=== PATIENT | male | born 1965 | race African-American/Black ===

== ENCOUNTER 2025-06-22 10:38 | Outpatient (AMB) | payer OTHER, SELFPAY ==
--- NOTE | 2025-06-22 10:44 | A.OFFVIS_ITS ---
Intake Visit Reasons: Tingling left upper ext. Allergies No Known Allergies Allergy (Verified 06/22/25 10:56) Medication List - Last Reconciled 06/22/25 by Jaye Hoffman CNP amitriptyline 50 mg PO BEDTIME amlodipine 5 mg PO DAILY aspirin 81 mg PO DAILY cagewvz-dnxdrkyngteto-bnlmruiz 250-250-65 mg (Excedrin Migraine) 1 tab PO Q4-6H PRN cholecalciferol (vitamin D3) (Vitamin D3) PO metformin ER 500 mg PO BID simvastatin 40 mg PO BEDTIME valsartan 160 mg PO DAILY HPI Comments Details: 60-year-old man with hyperlipidemia, hypertension, and diabetes presenting with intermittent tingling and numbness to the left hand that started in 04/2025 with no precipitating event identified. The numbness mainly affects the last two fingers of the left hand. The tingling and numbness occurs throughout the day, lasting 10-15 minutes each time. 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 He avoid activities that require substantial use of the left hand, such as lifting patients, to prevent exacerbation. He denies any significant pain or weakness. He states blood sugar has been well-controlled with fasting sugars under 120. [facility] Medical History (Updated 06/22/25 @ 11:02 by Jaye Hoffman CNP) HLD (hyperlipidemia) Hypertension Uncontrolled diabetes mellitus with hyperglycemia Tingling of left upper extremity Social History (Updated 06/22/25 @ 10:56 by Jaye Hoffman CNP) Alcohol intake: never Patient Tobacco Use Status: Current everyday Tobacco user Substance Use Type: Marijuana Review of Systems Const Denies chills, Denies daytime sleepiness, Denies difficulty sleeping, Denies fatigue, Denies fever(s), Denies frequent falls, Denies headache(s), Denies increased appetite, Denies poor appetite, Denies snoring, Denies weakness, Denies weight gain and Denies weight loss Eyes Denies blurry vision, Denies diplopia and Denies loss of vision ENT Denies vertigo, Denies dizziness, Denies dry mouth, Denies otalgia, Denies headache(s), Denies hearing loss, Denies epistaxis, Denies nasal congestion, Denies neck pain, Denies tinnitus, Denies sinus pain and Denies sore throat Card Denies chest pain at rest, Denies chest pain with activity, Denies syncope, Denies leg edema, Denies palpitations, Denies dyspnea and Denies dyspnea on exertion Resp Denies cough, Denies dyspnea, Denies dyspnea on exertion and Denies snoring GI Denies abdominal pain, Denies constipation, Denies heartburn, Denies diarrhea, Denies nausea and Denies vomiting Denies urinary frequency, Denies urinary incontinence and Denies urinary urgency Musc Denies abnormal gait, Denies back pain, Denies myalgias, Denies arthralgias, Denies neck pain, Reports numbness, Denies stiffness and Reports tingling Skin/Breast Denies pruritus, Denies lesions, Denies erythema, Denies rash and Denies skin ulcer Neuro Denies abnormal gait, Denies vertigo, Denies dizziness, Denies syncope, Denies frequent falls, Denies headache(s), Denies lack of coordination, Denies loss of vision, Denies memory loss, Reports numbness, Denies Other visual disturbances, Denies restless legs, Denies seizure-like activity, Reports tingling, Denies paresthesias, Denies tremor(s) and Denies weakness Psych Denies anxiety, Denies depression, Denies memory loss, Denies visual hallucinations and Denies hallucinations Endo Denies cold intolerance, Denies fatigue, Denies heat intolerance, Denies polydipsia, Denies polyuria and Denies palpitations Sherif/Lymph Denies easy bleeding and Denies easy bruising Physical Exam Const Other: General Appearance:? normal, in no acute distress. Head:? normocephalic, atraumatic. Eyes:? sclera non-icteric, conjunctiva clear. Ears:? auditory canal clear, tympanic membrane intact, clear. Nose:? no lesions. Oral Cavity:? gums normal, mucosa moist, no lesions. Throat:? clear. Neck/Thyroid:? no cervical lymphadenopathy, thyroid normal, neck supple, full range of motion, no carotid bruit. Skin:? no rashes, no significant birthmarks. Heart:? S1, S2 normal, no murmurs. Lungs:? clear anteriorly and posteriorly. Chest:? no gross rib deformity, clear to auscultation. Back:? normal exam of spine. Extremities:? no edema. Peripheral Pulses:? normal. Psych:? alert, oriented, cognitive function intact, cooperative with exam. Neuro Other: Abnormal Neurological Findings:?5-/5 L finger spread. Mental Status: alert and oriented X 3. Normal attention, orientation, memory, and affect. Cranial Nerves: Pupils are equal, round, and reactive to light. External ocular muscles are intact. Visual cloud are full, no ptosis. Face is symmetrical, no facial weakness or droop. Facial sensations are normal. Tongue protrudes in midline. Palate elevates symmetrically. Shoulder shrugging is normal Motor Examination: As above, otherwise normal muscle tone, bulk and strength. No atrophy or fasciculations. No drift of the extended upper extremities. DTR 2+. Plantars are flexor. Sensory Exam: Normal light touch, temperature, pinprick, vibration, and joint- position sensations. Rhomberg sign is absent. Coordination: No ataxia. No titubation. Gait Exam: Within normal limits. Cerebellar Signs: Ofucmv-kk-duml and socm-wi-bgtr is normal. No dysdiadochokinesia. Extrapyramidal System: No tremor, rigidity with normal facial expressions. No bradykinesia. No bradyphrenia. Normal arm swing and posture. No propulsion or retropulsion. Speech: Normal. No dysphasia or dysarthria. Assessment & Plan Assessment & Plan (1) Ulnar neuropathy: Code(s): G56.20 - Lesion of ulnar nerve, unspecified upper limb Category: Medical Qualifiers: Laterality: left Qualified Code(s): G56.22 - Lesion of ulnar nerve, left upper limb Plan: NCV/EMG ordered, reviewed testing ordered. Plan Exam, findings, and plan reviewed with Dr. Teague. Orders: Orders NE electromyogram (EMG) Today G56.22 - Lesion of ulnar nerve, left upper limb NE nerve conduction velocity Today G56.22 - Lesion of ulnar nerve, left upper limb Coding Level of Care Code New Pt Level 4 (63754) Diagnoses Ulnar neuropathy of left upper extremity G56.22 Laterality: left
--- OUTSIDE RECORDS SUMMARY | 2025-06-22 13:10 | XMS_ITS | Clinical Summary ---
Author Organization [facility] Address [address] [place] [address] Care Team Providers Care Acting Section Chief Name Role Phone Unavailable Primary Care Provider Unavailabl e Medications Medication Sig Dispensed Refills Start Date End Date Status amLODIPine (NORVASC) tablet 5 mg Take 1 tablet (5 mg total) by mouth daily. 0 04/14/2024 Active aspirin 81 MG EC tablet Take 1 tablet (81 mg total) by mouth. 0 07/31/2021 Active D3-1000 25 MCG (1000 UT) capsule TAKE 2 CAPSULES (2,000 UNITS TOTAL) BY MOUTH 1 (ONE) TIME EACH DAY 0 05/05/2024 Active metFORMIN (GLUCOPHAGE-XR) ER 24 hr tablet 500 mg Take 1 tablet (500 mg total) by mouth daily. 0 06/18/2024 Active simvastatin (ZOCOR) tablet 40 mg Take 1 tablet (40 mg total) by mouth every night at bedtime. 0 05/17/2024 Active valsartan (DIOVAN) tablet 160 mg Take 1 tablet (160 mg total) by mouth daily. 0 04/15/2024 Active SUMAtriptan (IMITREX) 50 MG tablet Take 1 tablet (50 mg total) by mouth every 2 (two) hours as needed for migraine. 10 tablet 0 06/28/2024 Active Social History Tobacco Use Types Packs/Day Years Used Date Smoking Tobacco: Never Assessed Sex and Gender Information Value Date Recorded Sex Assigned at Male 04/19/2024 2:17 PM EDT Gender Identity Not on file Sexual Orientation Not on file Job Start Date Occupation Industry Not on file Not on file Not on file Last Filed Vital Signs Vital Sign Reading Time Taken Comments Blood Pressure 139/95 06/28/2024 1:57 PM EDT Pulse 83 06/28/2024 1:57 PM EDT Temperature 36.1 C (97 F) 06/28/2024 1:57 PM EDT Respiratory Rate - - Oxygen Saturation - - Inhaled Oxygen Concentration - - Weight - - Height - - Body Mass Index - - Plan of Treatment Health Maintenance Due Date Last Done Comments Hepatitis C Screening 1967 Depression Screening 1979 Preventative Health Evaluation 1985 Colon Cancer Screening (Colonoscopy) 2012 COVID-19 Vaccine (2 - 2024-2 6 season) 2025 01/11/2021 Influenza Vaccine (#1) 2025 08/25/2014 DTap / Tdap / Td (2 - Td or Tdap) 12/20/2027 12/19/2017, 09/05/2009 Shingrix-Zoster Vaccine Completed 03/25/20, 12/19/2017 Hepatitis B Vaccines Completed 04/03/2022, 12/27/2021, 12/27/2021 Pneumococcal Vaccine Aged Out No long er eligible based on patient's age to complete this topic RSV Ped < 20 months Aged Out No longe r eligible based on patient's age to complete this topic
--- OUTSIDE RECORDS SUMMARY | 2025-06-22 13:10 | XMS_ITS | Clinical Summary ---
Author Organization [facility] Address [address] [place] [address] Care Team Providers Care Customs Appraiser Name Role Phone Vinh Jordan PA-C Primary Care Provider [phone] Source Comments PLEASE NOTE, if this patient is a minor, it may be UNLAWFUL to discuss sensitive information that is contained in these records (such as FAMILY PLANNING, MENTAL HEALTH or SUBSTANCE ABUSE) with the minor patient's parent or other person without the patient's specific authorization.[facility] Allergies Active Allergy Reactions Criticality Noted Date Comments Naproxen Diarrhea 07/04/2022 Vomiting. Medications blood-glucose meter monitoring kitIndications:Ty pe 2 diabetes mellitus with hyperglycemia, without long-term current use of insulin ([facility]) Use to check fasting blood glucose levels daily (FREESTYLE LITE) 1 Each 1 Active cholecalciferol, vitamin D3, 25 mcg (1,000 unit) capsule Take 1 Capsule by mouth Take 1 capsule by mouth 1 (one) time each day [facility] 03/12/2021 Active blood sugar diagnostic stripsIndications :Type 2 diabetes mellitus with hyperglycemia, without long-term current use of insulin ([facility]) Use 1 (one) strip daily to check fasting blood glucose levels daily (FREESTYLE LITE) 100 Each 11 1 Active lancetsIndication s:Type 2 diabetes mellitus with hyperglycemia, without long-term current use of insulin ([facility]) Use 1 (one) strip daily to check fasting blood glucose levels daily (FREESTYLE LITE) 100 Each 11 1 Active ibuprofen 600 mg tabletIndications :Nonintractable episodic headache, unspecified headache type Take 1 Tablet by mouth 4 (four) times daily as needed for pain or headaches 60 Tablet 3 2 Active simvastatin (ZOCOR) 40 mg tabletIndications :Hypercholesterol emia TAKE 1 TABLET BY MOUTH EVERYDAY AT BEDTIME 90 Tablet 1 2 Active alcohol swabs (BD ALCOHOL SWABS)Indications :Type 2 diabetes mellitus with hyperglycemia, without long-term current use of insulin ([facility]) USE TO CLEAN FINGER PRIOR TO CHECKING FASTING BLOOD GLUCOSE LEVELS DAILY 1x/d DXE11.9 100 Each 11 [address] tabletIndications :Essential hypertension,Type 2 diabetes mellitus with hyperglycemia, without long-term current use of insulin ([facility]),Hypertri glyceridemia TAKE 1 TABLET BY MOUTH EVERY DAY 90 Tablet 1 3 Active topiramate (TOPAMAX) 15 mg capsuleIndication s:Intractable chronic cluster headache TAKE 1 CAPSULE BY MOUTH EVERYDAY AT BEDTIME 30 Capsule 2 4 Active metFORMIN (GLUCOPHAGE) 500 mg tabletIndications :Type 2 diabetes mellitus with hyperglycemia, without long-term current use of insulin ([facility]) TAKE 1 TABLET BY MOUTH EVERY DAY WITH BREAKFAST 90 Tablet 1 4 Active valsartan (DIOVAN) 160 mg tabletIndications :Essential hypertension TAKE 1 TABLET BY MOUTH EVERY DAY 90 Tablet 1 4 Active Active Problems Problem Noted Date Diagnosed Date Acute right-sided low back pain with right-sided sciatica 07/17/2022 Stage 3 chronic kidney disease ([facility]) 0 03/12/2021 Hypertensive renal disease 03/12/2021 Type 2 diabetes mellitus wit h hyperglycemia, without long-term current use of insulin ([facility]) 02/20/2021 COVID-19 09/18/2020 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 Currently asymptomatic Sweating abnormality 03/26/2019 Hypertriglyceridemia 12/27/2018 Vitamin D deficiency 12/27/2018 Intractable chronic cluster headache 12/19/2017 Essential hypertension 11/29/2016 Immunizations Immunization Administration Dates Next Due Hep B,adult,adjuvanted (HEPLISAV) 04/03/2022, INFLUENZA, SEASONAL, INJECTABLE 08/25/2014 JOSE COVID-19 VACCINE 01/11/2021 Moderna COVID-19 Vaccine, re d cap blue label, 12+ Primary Series 10/23/2021 TDAP 12/19/2017 Td (adult) unspecified 09/05/2009 ZOSTER VACCINE, RECOMBINANT (SHINGRIX) 8,12/19/2017 Family History Medical History Relation Name Comments No Known Problems Brother 1 No Known Problems Brother 2 No Known Problems Daughter Alcohol/Drug Abuse Father of d rug overdose Alcohol/Drug Abuse Mother of d rug overdose No Known Problems Son 1 No Known Problems Son 2 No Known Problems Son 3 No Known Problems Son 4 Relation Name Status Comments Brother 1 Alive Brother 2 Alive Daughter Alive Father Mother Son 1 Alive Son 2 Alive Son 3 Alive Son 4 Alive Social History Tobacco Use Types Packs/Day Years Used Date Smoking Tobacco: Never Smokeless Tobacco: Never Tobacco Cessation:Counseling Given: Yes Alcohol Use Standard Drinks/Week Comments Not Currently 0 (1 standard drink = 0.6 oz pur e alcohol) social Social Connections Answer Date Recorded Connectedness 0 06/09/2024 Financial Resource Strain Answer Date R ecorded Financial Resource Strain 0 2018 Stress Answer Date Recorded Stress 0 05/26/2019 Physical Activity Answer Date Recorded Physical Activity 0 05/26/2019 Food Insecurity Answer Date Recorded Food 0 07/01/2024 Transportation Needs Answer Date Record ed Transportation 0 05/26/2019 Housing Stability Answer Date Recorded Housing 0 05/26/2019 Safety and Environment Answer Date Eyal rded Safety 0 03/02/2021 Utilities Answer Date Recorded Utilities 0 05/26/2019 Employment Answer Date Recorded Employment 0 05/26/2019 Sex and Gender Information Value Date Recorded Sex Assigned at Male 09/17/2017 7:23 AM PST Legal Sex Male 7:08 AM PST Gender Identity Male Sexual Orientation Straight Occupation Industry Job Start Date Job End Date senior DC-1 Not on file Not on file Not on file Last Filed Vital Signs Vital Sign Reading Time Taken Comments Blood Pressure 213/117 05/11/2024 3:26 PM EDT Pulse 98 05/11/2024 3:26 PM EDT Temperature 36.8 C (98.2 F) 02/05/2023 11:01 AM EDT Respiratory Rate 18 02/05/2023 11:01 AM EDT Oxygen Saturation 97% 02/05/2023 11:01 AM EDT Inhaled Oxygen Concentration - - Weight 124.1 kg (273 lb 8 oz) 02/05/2023 11:01 A M EDT Height 180.3 cm (5' 11 ) 08/22/2022 1:52 PM EST Body Mass Index 38.15 08/22/2022 1:52 PM EST Plan of Treatment Health Maintenance Due Date Last Done Comments Anxiety Screening 1967 Dental FMX/Pano 1967 Tobacco Screening 1967 Imm-Hepatitis A (1 of 2 - Ri sk 2-dose series) 1986 Imm-Pneumococcal 50+ (1 of 2 - PCV) 1986 CT Colonography 2012 Colonoscopy 2012 Fecal DNA 2012 Flexible Sigmoidoscopy 2012 Colorectal Cancer Screening 04/02/2020 FIT/gFOBT 04/02/2020 04/02/2019 Annual Wellness (Adult): Ind icated (All Coverage) 03/02/2022 03/02/2021, 12/22/2018, 12/19/2017, Additional history exists Urine Albumin Creatinine Rat io Screening 07/31/2022 07/31/2021, 04/24/2021 Retinopathy Screening 03/03/2023 03/03/2022 Hemoglobin A1c 08/08/2023 02/05/2023, 0302/2022, 07/31/2021, Additional history exists Diabetes Foot Exam 02/06/2024 02/05/2023, 0 02/05/2023, 07/31/2021, Additional history exists HIV Screening 02/06/2024 02/05/2023, 06/08, 12/22/2018, Additional history exists Lipid Screening 02/06/2024 02/05/2023, 0612/2020, 12/22/2018, Additional history exists Serum Creatinine 02/06/2024 02/05/2023, , 07/31/2021, Additional history exists Syphilis Screening 02/06/2024 02/05/2023 Alcohol and Drug Screen 10/06/2024 02/06/20 23, 12/18/2021, 03/02/2021, Additional history exists Depression Annual Screen 10/06/2024 02/05/2023, 12/04 Dental Prophy 10/26/2024 04/23/2024 Dental BW 04/25/2025 04/23/2024 Dental Examination 04/25/2025 04/23/2024 Dental Perio Charting 04/25/2025 04/23/2024 [id number] ( season) 2025 022, 01/11/2021 Imm-Influenza (#1) 2025 08/25/2014 Imm-DTaP/Tdap/Td (2 - Td or Tdap) 12/20/2027 018, 09/05/2009 Hepatitis C Screening Completed 12/20/2016 Imm-Zoster, Recombinant Completed 03/25/2018, 12/19 Imm-Hepatitis B Completed 04/03/2022, 12/27/2021 Procedures Procedure Name Priority Date/Time Associated Diagnosis Comments COMP PERIODONTAL EVALUATION - NEW/EST PATIENT Routine 04/23/2024 3:40 PM EDT [facility] BITEWINGS - FOUR RADIOGRAPHIC IMAGES Routine 04/23/2024 3:40 PM EDT [facility]ies Full PROPHYLAXIS - ADULT Routine 04/23/2024 3:40 PM EDT [facility]ies Full PERIODIC ORAL EVALUATION ESTABLISHED PATIENT Routine 04/23/2024 3:40 PM EDT [facility] HIV 1/2 AG & AB W/RFLX (4TH GEN) Routine 02/05/2023 11:33 AM EDT Screening for viral disease RPR W/RFLX TITER+FTA+CONF Routine 02/05/2023 11:33 AM EDT Screening for viral disease CREATININE BLOOD Routine 02/05/2023 11:3 3 AM EDT Type 2 diabetes mellitus with hyperglycemia, without long-term current use of insulin ([facility]) LIPID PANEL Routine 02/05/2023 11:33 AM EDT Type 2 diabetes mellitus with hyperglycemia, without long-term current use of insulin ([facility]) HEMOGLOBIN GLYCOSYLATED A1C Routine 02/05/2023 11:33 AM EDT Type 2 diabetes mellitus with hyperglycemia, without long-term current use of insulin ([facility]) MICROALBUMIN/CREATINI NE RATIO, URINE, RANDOM Routine 07/31/2021 3:46 PM EDT Type 2 diabetes mellitus with hyperglycemia, without long-term current use of insulin ([facility]) FECAL OCCULT BLOOD HEMOCCULT X3, LEOBARDO MELANIE (POCT) Routine 04/02/2019 9:56 AM EDT Colon cancer screening HEPATITIS A,B,C PANEL Routine 12/20/2016 10:20 AM EDT Exposure to viral hepatitis from Last 3 Months or Most Recently Relevant to Health Maintenance Results * HIV Screen (02/05/2023 11:33 AM EDT) [facility] HIV AG/AB, 4TH GEN NON-REAC TIVE NON-REAC TIVE [facility] Comment: HIV-1 antigen and HIV-1/HIV-2 antibodies were not detected. There is no laboratory evidence of HIV infection. PLEASE NOTE: This information has been disclosed to you from records whose confidentiality may be protected by state law. If your state requires such protection, then the state law prohibits you from making any further disclosure of the information without the specific written consent of the person to whom it pertains, or as otherwise permitted by law. A general authorization for the release of medical or other information is NOT sufficient for this purpose. For additional information please refer to http://education.HealthMedia.Seevibes/faq/NTN385 (This link is being provided for informational/ educational purposes only.) The performance of this assay has not been clinically validated in patients less than 2 years old. Blood Blood / Unknown 02/05/2023 1 1:33 AM EDT 02/05/2023 11:33 AM EDT Narrative [facility] - 02/07/2023 1:25 PM EDT FASTING:NO Vinh Jordan PA-C LAB - BLOOD DRAW Final Resul t Performing Organization Address [facility]/ZIP Co de Phone Number [facility] [address] [address], [employer] [address] [address] * RPR W/RFLX TITER+FTA+CONF (02/05/2023 11:33 AM EDT) RPR (DX) W/REFL TITER AND CONFIRMATORY TESTING NON-REACT WOOD NON-REACT WOOD [facility] Blood Blood / Unknown 02/05/2023 1 1:33 AM EDT 02/05/2023 11:33 AM EDT Narrative [facility] - 02/07/2023 1:25 PM EDT FASTING:NO us Vinh Jordan PA-C LAB - BLOOD DRAW Final Resul t Performing Organization Address [facility] Co de Phone Number [facility] [address] [address], [employer] [address] [address] * HbA1c (02/05/2023 11:33 AM EDT) HEMOGLOBIN A1C 5.3 <5.7 % of total Hgb [facility] Comment: For the purpose of screening for the presence of diabetes: <5.7% Consistent with the absence of diabetes 5.7-6.4% Consistent with increased risk for diabetes (prediabetes) > or =6.5% Consistent with diabetes This assay result is consistent with a decreased risk of diabetes. Currently, no consensus exists regarding use of hemoglobin A1c for diagnosis of diabetes in children. According to [place] [employer] Association (ADA) guidelines, hemoglobin A1c <7.0% represents optimal control in non- diabetic patients. Different metrics may apply to specific patient populations. Standards of Medical Care in Diabetes(ADA). Blood Blood / Unknown 02/05/2023 1 1:33 AM EDT 02/05/2023 11:33 AM EDT Narrative [facility] - 02/07/2023 1:25 PM EDT FASTING:NO Vinh Jordan PA-C LAB - BLOOD DRAW Edited Resu lt - Final Performing Organization Address [facility]/ZIP Co de Phone Number [facility] [address] [address], [facility] [address] [address] * CREATININE, SERUM (02/05/2023 11:33 AM EDT) CREATININE (blood) 1.24 0.70 - 1.30 mg/dL [facility] EGFR 69 > OR = 60 mL/min/1.7 3m2 [facility] Comment: The eGFR is based on the CKD-EPI 2020 equation. To calculate the new eGFR from a previous Creatinine or Cystatin C result, go to https://www.kidney.org/professionals/ kdoqi/gfr%5Fcalculator Blood Blood / Unknown 02/05/2023 1 1:33 AM EDT 02/05/2023 11:33 AM EDT Narrative [facility] - 02/07/2023 1:25 PM EDT FASTING:NO Vinh Jordan PA-C LAB - BLOOD DRAW Edited [facility] - Final Performing Organization Address [facility] Co de Phone Number [facility] [address] [address], [facility] [address] [address] * (ABNORMAL) Lipid panel (02/05/2023 11:33 AM EDT) CHOLESTEROL, TOTAL 150 <200 mg/dL [facility] HDL CHOLESTEROL 45 > OR = 40 mg/dL [facility] TRIGLYCERIDES 241(H) <150 mg/dL [facility] Comment: If a non-fasting specimen was collected, consider repeat triglyceride testing on a fasting specimen if clinically indicated. Matt et al. J. of Clin. Lipidol. 2015;9:129-169. LDL-CHOLESTEROL 72 99 mg/dL (calc) [facility] Comment: Reference range: <100 Desirable range <100 mg/dL for primary prevention; <70 mg/dL for patients with CHD or diabetic patients with > or = 2 CHD risk factors. LDL-C is now calculated using the Octavia calculation, which is a validated novel method providing better accuracy than the Friedewald equation in the estimation of LDL-C. James AVENDANO et al. CHIKIS. 2013;310(19): 8894-5899 (http://education.Continuity Software/faq/NXT060) CHOL/HDLC RATIO 3.3 <5.0 (calc) [facility] NON-HDL CHOLESTEROL 105 <130 mg/dL (calc) [facility] Comment: For patients with diabetes plus 1 major ASCVD risk factor, treating to a non-HDL-C goal of <100 mg/dL (LDL-C of <70 mg/dL) is considered a therapeutic option. Blood Blood / Unknown 02/05/2023 1 1:33 AM EDT 02/05/2023 11:33 AM EDT Narrative [facility] - 02/07/2023 1:25 PM EDT FASTING:NO Vinh Jordan PA-C LAB - BLOOD DRAW Final Resul t [facility] [address] [address], [facility] [address] [place] [id number] * MICROALBUMIN/CREATININE RATIO, URINE, RANDOM (07/31/2021 3:46 PM EDT) CREATININE, RANDOM URINE 190 20 - 320 mg/dL [facility] MICROALBUMIN 1.0 mg/dL [facility] Comment: Reference Range Not established MICROALBUMIN/CREA TININE RATIO, RANDOM URINE 5 <30 mcg/mg creat [facility] Comment: The ADA defines abnormalities in albumin excretion as follows: Albuminuria Category Result (mcg/mg creatinine) Normal to Mildly increased <30 Moderately increased 30-299 Severely increased > OR = 300 The ADA recommends that at least two of three specimens collected within a 3-6 month period be abnormal before considering a patient to be within a diagnostic category. Urine Urine specimen / Unknown 07/31/2021 3:46 PM EDT 07/31/2021 3:47 PM EDT [facility] URINE AMBULATORY Final Resul t [facility] [address] [place] [address], [place] [facility] [address] [facility] [address] [facility] [address] * STOOL OCCULT BLOOD (POCT) (04/02/2019 9:56 AM EDT) FECAL OCCULT BLOOD NEGATIVE NEGATIVE [facility] FECAL OCCULT BLOOD #2 NEGATIVE NEGATIVE [facility] FECAL OCCULT BLOOD #3 NEGATIVE NEGATIVE [facility] Stool specimen (specimen) Stool specimen / Unknown 04/02/2019 9:56 AM EDT [facility] BODY FLUIDS AND STOOLS AMBUL ATORY Final Result Performing Organization Address City/[facility]/ZIP Co de Phone Number [facility] * HEPATITIS A,B,C PANEL (12/20/2016 10:20 AM EDT) HEPATITIS B CORE ANTIBODY NEGATIVE NEGATIVE [facility] HEPATITIS A ANTIBODY TOTAL NEGATIVE NEGATIVE [facility] Blood specimen (specimen) Blood / Unknown 12/20/2016 10:20 AM EDT 12/20/2016 10:36 AM EDT Narrative [facility] - 12/20/2016 12:57 PM EDT [employer] [address] [place] [address] PT ID [id number] ORD# [id number] [facility] - BLOOD DRAW Final Result [facility] [address] [place] [address], from Last 3 Months or Most Recently Relevant to Health Maintenance Insurance [facility] Member Subscriber Plan / Payer (Ef fective 2023-Present) Name:Estevan Vera Relation to Subscriber:Self Name:Estevan Vera Payer ID:[id number] Group ID:[id number] Type:Medicaid Address: [address] [address] [place] [address] [facility] Care Teams Customs Appraiser Relationship Specialty Start Date End Date Vinh Jordan PA-C [address] [place] [address] PCP - General 03/15/22
--- OUTSIDE RECORDS SUMMARY | 2025-06-22 13:10 | XMS_ITS ---
Author Name [facility] Organization Unknown History of Medication Use Medication Directions Dispensed Refills Start Date End Date Stat topiramate (TOPAMAX) 25 MG tablet Take 1 tablet (25 mg total) by mouth 2 (two) times a day for 14 days, THEN 2 tablets (50 mg total) 2 (two) times a day for 40 days. 06/28/2024 08/22/2024 active SUMAtriptan (IMITREX) 50 MG tablet Take 1 tablet (50 mg total) by mouth every 2 (two) hours as needed for migraine. 06/28/2024 active D3-1000 25 MCG (1000 UT) capsule TAKE 2 CAPSULES (2,000 UNITS TOTAL) BY MOUTH 1 (ONE) TIME EACH DAY 05/05/2024 active valsartan (DIOVAN) tablet 160 mg Take 1 tablet (160 mg total) by mouth daily. 04/15/2024 active Problems Problem Status Onset Date Problem Type Date of Resolution Source Migraine without aura and without status migrainosus, not intractable active EncounterDiagnosisAct CTT HNEMG Syncope and collapse active EncounterDiagnosisAct CTTHNE MG
--- OUTSIDE RECORDS SUMMARY | 2025-06-22 13:10 | XMS_ITS | Clinical Summary ---
Author Organization 175 [facility] Address 175 [place] [address] Phone Care Team Providers Care Mini Bar Attendant Name Role Phone Rakan Man MD Primary Care Provider [phone] Allergies No known active allergies Medications aspirin 81 mg EC tablet Take 81 mg by mouth daily. Active cholecalciferol (VITAMIN D-3) 25 mcg (1,000 unit) tablet Take 2 tablets (2,000 Units total) by mouth 1 (one) time each day. Active aspirin-acetami nophen-caffeine (EXCEDRIN MIGRAINE) 250-250-65 mg per tablet Take 1 tablet by mouth every 6 (six) hours if needed for headaches. Active glucose blood test strip Use as instructed 100 each 11 5 12/09/19 26 Active blood-glucose meter kit Check blood sugar twice a day 1 kit 1 5 Active simvastatin (ZOCOR) 40 mg tablet TAKE 1 TABLET BY MOUTH EVERYDAY AT BEDTIME 90 tablet 1 5 Active metFORMIN XR (GLUCOPHAGE-XR) 500 mg 24 hr tablet 2 p.o. once a day after lunch ,do not crush, chew, or split. 180 each 1 5 Active valsartan (DIOVAN) 160 mg tablet TAKE 1 TABLET BY MOUTH 1 TIME EACH DAY. 90 tablet 1 5 Active amitriptyline (ELAVIL) 50 mg tablet Take 1 tablet (50 mg total) by mouth at bedtime. 30 each 5 5 03/14/20 26 Active amLODIPine (NORVASC) 5 mg tablet TAKE 1 TABLET BY MOUTH EVERY DAY 90 tablet 1 5 Active Active Problems Problem Noted Date Diagnosed Date Uncontrolled diabetes mellit us with hyperglycemia ([facility] V24, [facility] V28) 12/07/2024 Encounters Date Type Department Care Team Description 05/16/2025 [facility] 175 [facility] [address] [place] [address] Rakan Man MD 05/12/2025 [facility] 175 [facility] [address] [place] [address] Rakan Man MD 05/03/2025 [facility] 175 [facility] [address] [place] [address] Rakan Man MD 05/02/2025 11:45 AM EDT Office Visit Internal [facility] [address] [phone] Rakan Man MD Tingling of left upper extremity (Primary Dx) 04/26/2025 [facility] 175 [facility] [address] [place] [address] Rakan Man MD 03/28/2025 3:15 PM EDT Office Visit Orthopedic [facility] 250 175 [facility] [address] [place] [phone] Jian Luevano, DPM Dermatophytosis of nail (Primary Dx); Diabetic mononeuropathy simplex [place] [place] [facility] [place] Tinea pedis of both feet; Ingrowing nail from Last 3 Months Immunizations Name Administration Dates Next Due [facility] SARS-CoV-2 COVID -19, vector-nr, [id number], preservative free 01/11/2021 Surgical History Surgery Date Site/Laterality Comments COLONOSCOPY Medical History Medical History Date Comments Migraine DX:Migraine Diabetes mellitus ([facility] V24, [facility] V28) DX:Diabetes mellitus ([facility]) Hypertension DX:Hypertension Hypercholesteremia Social History Tobacco Use Types Packs/Day Years Used Date Smoking Tobacco: Never Smokeless Tobacco: Never Tobacco Cessation:Counseling Given: Not Answered Alcohol Use Standard Drinks/Week Comments Yes 0 (1 standard drink = 0.6 oz pur e alcohol) Social Interpersonal Safety Answer Date Record ed Physical Abuse 12/07/2024 Verbal Abuse 12/07/2024 Sex and Gender Information Value Date Recorded Sex Assigned at Not on file Legal Sex Male 8:10 AM EST Gender Identity Not on file Sexual Orientation Not on file Obstetrics History Last Filed Vital Signs Vital Sign Reading Time Taken Comments Blood Pressure 131/77 05/02/2025 11:50 AM EDT Pulse 102 05/02/2025 11:50 AM EDT Temperature 36.7 C (98.1 F) 05/02/2025 11:50 AM EDT Respiratory Rate 16 12/08/2024 8:12 AM EST Oxygen Saturation 100% 05/02/2025 11:50 AM EDT Inhaled Oxygen Concentration - - Weight 112 kg (247 lb) 05/02/2025 11:50 AM EDT Height 175.3 cm (5' 9 ) 05/02/2025 11:50 AM EDT Body Mass Index 36.48 05/02/2025 11:50 AM EDT Plan of Treatment Upcoming Encounters Date Type Department Care Team (Late st Contact Info) Description 06/28/2025 3:30 PM EDT Office Visit [facility] 250 175 [facility] [address] [place] [phone] Jian Luevano DPM [address] [phone] 08/25/2025 9:30 AM EST Office Visit Internal Medicine [facility] 175 [facility] [address] [place] [phone] Rakan Man MD 175 [facility] 200 [place] [address] 09/13/2025 4:30 PM EST Office Visit [facility] 175 [facility] [address] [place] [phone] Mallorie Lancaster PA 175 [facility] [address] [place] [address] Health Maintenance Due Date Last Done Comments Diabetes: Annual Foot Exam 1977 Pneumococcal Vaccine: 50+ Years (1 of 2 - PCV) 1986 Colorectal Cancer Screening: Colonoscopy 09/14/2022 Hepatitis C Screening 09/14/2022 Social Influencers of Health Screening 09/14/2022 Depression Screening 10/06/2024 COVID-19 Vaccine (3 - season) 2025 10/23/2021, 01/11/2021 Influenza Vaccine (#1) 2025 08/25/2014 Diabetes: Blood Sugar Control Test (HGBA1C) 06/10/2025 12/08/2024, 02/05/2023 Diabetes: Annual Retina Eye Exam 08/30/2025 08/30/2024 Diabetes: Annual Urine Albumin-Creatinine Ratio (uACR) 11/16/2025 11/16/2024, 02/07/2023, 07/31/2021 Diabetes: Annual GFR (Glomerular Filtration Rate) 12/07/2025 12/07/2024, 12/07/2024, 12/19/2021 Hypertension/CHF/CAD Annual BMP Blood Test 12/07/2025 12/07/2024, 12/07/2024, 12/19/2021 DTaP,Tdap,and Td Vaccines (3 - Td or Tdap) 12/20/2027 12/19/2017, 09/05/2009 Cholesterol Screening (Lipid Panel) 02/08/2028 02/07/2023, 02/05/2023, 02/05/2023, Additional history exists Zoster Vaccines Completed 03/25/2018, 12/19/2017 Hepatitis B Vaccines Completed 04/03/2022, 12/28/19 22 HIV Screening Completed 02/07/2023 HIB Vaccines Aged Out No longer eligi ble based on patient's age to complete this topic HPV Vaccines Aged Out No longer eligi ble based on patient's age to complete this topic Hepatitis A Vaccines Aged Out No long er eligible based on patient's age to complete this topic IPV Vaccines Aged Out No longer eligi ble based on patient's age to complete this topic MMR Vaccines Aged Out No longer eligi ble based on patient's age to complete this topic Meningococcal ACWY Vaccine Aged Out N o longer eligible based on patient's age to complete this topic Meningococcal B Vaccine Aged Out No l onger eligible based on patient's age to complete this topic RSV Immunization Patients Under 20 months Aged Out No longer eligible based on patient's age to complete this topic Varicella Vaccines Aged Out No longer eligible based on patient's age to complete this topic Procedures Procedure Name Priority Date/Time Associated Diagnosis Comments HEMOGLOBIN A1C Routine 12/08/2024 6:34 AM EST COMPREHENSIVE METABOLIC PANEL STAT 12/07/2024 10:19 AM EST EXTERNAL DIABETIC RETINA EYE EXAM 08/30/2024 HM HIV SCREENING Routine 02/07/2023 HM URINE ALBUMIN CREATININE RATIO Routine 02/07/2023 LIPID PANEL Routine 02/07/2023 from Last 3 Months or Most Recently Relevant to Health Maintenance Results * (ABNORMAL) Hemoglobin A1c (12/08/2024 6:34 AM EST) Hemoglobin A1C 9.1(H) <6.5 % LAB CHEMISTRY METHOD 12/08/2024 11:01 AM EST [facility] Mean Bld Glu Estim. 214 mg/dL LAB CHEMISTRY METHOD 12/08/2024 11:01 AM EST [facility] Blood Venous blood specimen / Unknown Venipuncture / Unknown 12/08/2024 6:34 AM EST 12/08/2024 6:58 AM EST us Edith MOONEY LAB BLOOD ORDERABLES Final Resu lt [facility] [address] [place] [address], * (ABNORMAL) Comprehensive metabolic panel (12/07/2024 10:19 AM EST) Sodium 138 133 - 145 mmol/L LAB CHEMISTRY METHOD 12/07/2024 11:05 AM EST [facility] Potassium 4.1 3.5 - 5.5 mmol/L LAB CHEMISTRY METHOD 12/07/2024 11:[address] [facility] Chloride 105 96 - 110 mmol/L LAB CHEMISTRY METHOD 12/07/2024 11:[address] [facility] CO2 22 21 - 32 mmol/L LAB CHEMISTRY METHOD 12/07/2024 11:[address] [facility] Anion Gap 11 3 - 11 LAB CHEMISTRY METHOD 12/07/2024 11:[address] [facility] Glucose 398(H) 70 - 100 mg/dL LAB CHEMISTRY METHOD 12/07/2024 11:[address] [facility] BUN 13 5 - 25 mg/dL LAB CHEMISTRY METHOD 12/07/2024 11:[address] [facility] Creatinine 1.34(H) 0.70 - 1.30 mg/dL LAB CHEMISTRY METHOD 12/07/2024 11:[address] [facility] eGFR 62 >=60 mL/min/1. 73m2 LAB CHEMISTRY METHOD 12/07/2024 11:[address] [facility] Comment:Calculation based on the Chronic Kidney Disease Epidemiology Collaboration (CKD-EPI) equation refit without adjustment for race. BUN/Creatinine Ratio 9.7 LAB CHEMISTRY METHOD 12/07/2024 11:[address] [facility] Calcium 9.7 8.5 - 10.5 mg/dL LAB CHEMISTRY METHOD 12/07/2024 11:[address] [facility] AST (SGOT) 49(H) 10 - 42 unit/L LAB CHEMISTRY METHOD 12/07/2024 11:[address] [facility] ALT (SGPT) 74(H) 10 - 60 unit/L LAB CHEMISTRY METHOD 12/07/2024 11:[address] [facility] Alkaline Phosphatase 78 42 - 121 unit/L LAB CHEMISTRY METHOD 12/07/2024 11:[address] [facility] Total Protein 8.0 6.0 - 8.0 g/dL LAB CHEMISTRY METHOD 12/07/2024 11:05 AM EST [facility] Albumin 4.3 3.2 - 5.0 g/dL LAB CHEMISTRY METHOD 12/07/2024 11:05 AM EST [facility] Total Bilirubin 1.2 0.0 - 1.4 mg/dL LAB CHEMISTRY METHOD 12/07/2024 11:05 AM EST [facility] Blood Venous blood specimen / Unknown Venipuncture / Unknown 12/07/2024 10:19 AM EST 12/07/2024 10:28 AM EST Result [facility] Catalino Velasco MD LAB BLOOD ORDERABLES Final Resu lt [facility] [address] [place] [address], [place] [phone] * External Diabetic Retina Eye Exam Report (08/30/2024) Anatomical Region Laterality Modality Ultrasound Result [facility] Provider [facility] IMG US PROCEDURES Final Result * Urine Albumin Creatinine Ratio (02/07/2023) Pathologist [facility] Urine Albumin Creatinine Ratio abstracted Result [facility] Historical Provider HEALTH MAINTENANCE Final Result * HIV Screening (02/07/2023) Pathologist [facility] HIV Screening abstracted Result [facility] Historical Provider HEALTH MAINTENANCE Final Result * Lipid panel (02/07/2023) Pathologist [facility] Triglycerides 0 mg/dL Comment:no interpretation, a bstracted Cholesterol 0 mg/dL Comment:no interpretation, a bstracted HDL 0 mg/dL Comment:no interpretation, a bstracted LDL Cholesterol 0 mg/dL Comment:no interpretation, a bstracted Blood Venous blood specimen / Unknown Result [facility] Historical Luis GRIMALDO LAB BLOOD ORDERABLES Princess l Result from Last 3 Months or Most Recently Relevant to Health Maintenance Insurance [employer] Advance Directives * Full Code - Default (Latest Code Status on File) Date Activated Date Inactivated Comments 12/07/2024 3:11 PM 12/08/2024 1:07 PM This is order is used when code status has not been discussed with the patient, or code status is otherwise unknown/unconfirmed To update the patient's code status, place a code status order. Do not modify or discontinue any currently active code status orders. Care Teams Mini Bar Attendant Relationship Specialty Start Date End Date Rakan Man MD 175 [facility] [address] [place] [address] PCP - General 01/15/23
== END 2025-06-22 11:15 | disposition home or self-care (01) ==
LOC: HO.HSM 10:39
PROVIDERS: PCP Internal Medicine; Visit Provider Registered Nurse
DX: G56.22 Lesion of ulnar nerve, left upper limb (principal)
CPT/HCPCS: 99204

== ENCOUNTER 2025-06-29 08:50 | Outpatient (REF) | payer OTHER, SELFPAY ==
--- OUTSIDE RECORDS SUMMARY | 2025-06-28 15:30 | XMS_ITS | Encounter Summary ---
Author Organization [facility] Address [address] [place] [address] Care Team Providers Care Beet End Supervisor Name Role Phone Rakan Man MD Primary Care Provider [phone] Reason for Visit * Reason Comments Nail Problem Nail care Encounter Details Date Type Department Care Team ([facility] st Contact Info) Description 06/28/2025 3:30 PM EDT Office Visit Orthopedic Surgery [facility] [place] [address] [address] iJan Luevano, DPM [address] [phone] Dermatophytosis of nail (Primary Dx); Diabetic mononeuropathy simplex ([facility] V24, [facility] V28); Tinea pedis of both feet; Ingrowing nail Social History Tobacco Use Types Packs/Day Years Used Date Smoking Tobacco: Never Smokeless Tobacco: Never Alcohol Use Standard Drinks/Week Comments Yes 0 (1 standard drink = 0.6 oz pur e alcohol) Social Interpersonal Safety Answer Date Record ed Physical Abuse 12/07/2024 Verbal Abuse 12/07/2024 Sex and Gender Information Value Date Recorded Sex Assigned at Not on file Legal Sex Male 8:10 AM EST Gender Identity Not on file Sexual Orientation Not on file documented as of this encounter Functional Status * Are you deaf or do you have serious difficulty hearing? Answer Date of Assessment Author No 12/07/2024 12:43 PM Fabio Gutierrez RN * Are you blind or do you have serious difficulty seeing, even when wearing glasses? Answer Date of Assessment Author No 12/07/2024 12:43 PM Fabio Gutierrez RN * Do you have serious difficulty walking or climbing stairs? Answer Date of Assessment Author No 12/07/2024 12:43 PM Fabio Gutierrez RN * Do you have serious difficulty dressing or bathing? Answer Date of Assessment Author No 12/07/2024 12:43 PM Fabio Gutierrez RN * Because of a physical, mental, or emotional condition, do you have serious difficulty doing errandsalone such as visiting the doctor? Answer Date of Assessment Author No 12/07/2024 12:43 PM Fabio Gutierrez RN documented as of this encounter Mental Status * Because of a physical, mental, or emotional condition, do you have serious difficulty concentrating, remembering, or making decisions? (5 years old or older) Answer Entry Date Author No 12/07/2024 12:43 PM Fabio Gutierrez RN documented in this encounter Progress Notes * Jian Luevano, MAXIMILIANO - 06/28/2025 3:30 PM EDT S Patient presents today that he is doing well at this time he notes that he presents today because his thickened painful nails he notes that the pain discomfort is a 5 out of 10 is it bothers him regularly he was started on Lamisil but is afraid to take the medication as yet to get it he also notes he was labs ordered on the of last month patient to fill them. Patient does note that he has itchiness of his skin and nails continues to report curvature of the toenails that do bother him as well ROS: GENERAL: Pt denies nausea, fever, vomiting, chills, or shortness of breath. Pt in NAD. CARDIOLOGY: pt denies chest pain, palpitations LUNGS: pt denies shortness of breath MUSCULOSKELETAL: See HPI, otherwise no joint pain or swelling, back pain, or muscle pain. SKIN: see HPI, otherwise no lesions, rash or itching NEURO: No persistent headache, weakness or numbness The remainder of the review of systems is noncontributory PAST MEDICAL HISTORY: Patient Active Problem List Diagnosis Code Hypertension I10 Hyperlipidemia E78.5 Syncope R55 Ascending aortic aneurysm (HCC) I71.21 SOCIAL HISTORY: Social History Tobacco Use Smoking status: Every Day Smokeless tobacco: Never Substance Use Topics Alcohol use: No History Last Reviewed by Mamadou Worthington M.A. on 04/14/2024 at 3:12 PM Sections Reviewed Tobacco ACTIVE MEDICATIONS: Current Outpatient Medications Medication Sig Dispense Refill metformin (GLUCOPHAGE-XR) 500 MG 24 hr tablet Take 1 Tablet by mouth daily. 90 Tablet 1 amlodipine (NORVASC) 5 MG tablet Take 1 Tablet by mouth daily for 180 days. 30 Tablet 5 Cholecalciferol (Vitamin D) 25 MCG (1000 UT) Tab Take 2 Tablets by mouth daily. simvastatin (ZOCOR) 40 MG tablet Take 1 Tablet by mouth at bedtime. 90 Tablet 1 valsartan (DIOVAN) 160 MG tablet Take 1 Tablet by mouth daily. aspirin 81 MG EC tablet Take 81 mg by mouth daily. No current facility-administered medications for this visit. ALLERGIES: Patient has no known allergies. PHYSICAL EXAM: Height 5' 11 (1.803 m), weight 272 lb (123.4 kg). Estimated body mass index is 37.94 kg/m?? as calculated from the following: Height as of this encounter: 5' 11 (1.803 m). Weight as of this encounter: 272 lb (123.4 kg). PODIATRIC EXAMINATION: GENERAL: Patient appears well nourished, with NAD. VASCULAR: Dorsalis pedis pulses are 2/4 bilaterally and Posterior tibial pulses are 2/4 bilaterally. Capillary filling time within normal limits the digits. No pallor on elevation or rubor on dependency. Positive hair growth. No varicosities. Denies rest pain or claudication pain. NEUROLOGICAL: Sharp/dull sensation intact, protective sensation intact 10/10 with 5.07 semmes nghia bilaterally, vibratory sensation with tuning fork intact to the tibial tuberosity. ORTHOPEDIC: Good muscle strength 5/5 of all flexors and extensors. Dorsi flexion of ankle ,10 degrees, plantar flexion WNL. No muscle atrophy. No pain of the Achilles tendon bilaterally DERMATOLOGICAL:.Yellow discoloration feet interdigital macerations fourth interspace bilaterally annular scaling bilateral feet Nails thickened discolored x 10 normal curvature left great toenail BIOMECHANICS: STJ ROM wnl, MTJ ROM wnl, 1st MPJ ROM wnl. IMAGING: impression 1. Dermatophytosis of nail 2. Diabetic mononeuropathy simplex ([facility]/HCC V24, [facility]/HCC V28) 3. Tinea pedis of both feet 4. Ingrowing nail PLAN: Pt was seen and examined, history reviewed. continue withLotrimin continue with miconazole spray refills both sent to pharmacy Discussed with patient biggest risk for Lamisil is a liver irritation it should be safe from takes medication but if he would like to hold off on we can start him on topical medications topicals do have limitation on effectiveness all the risks and benefits were reviewed in detailNails clean optimize topical therapy patient is trim toenails at home prior to his appointment recommend he present straight across Discussed with patient regarding proper glucose control, exercise, and diet. Explained to patient proper shoe gear, and importance of daily foot checks. I reviewed neuropathy and why it occurs in diabetics. I educated the patient on proper blood sugar control and the importance of an HgBA1c of lessthan 7.0%. I reviewed the signs and symptoms of neuropathy with the patient Minor surgical procedure of nail removal with matrixectomy was discussed and reviewed versus nail removal discussed with patient risks of nail procedure including scar tissue formation reoccurrence loss of more nail deformity cosmetic changes that are undesirable Pt to return for another evaluation in 1-2 months. Jian Luevano DPM documented in this encounter Plan of Treatment Upcoming Encounters Date Type Department Care Team (Late st Contact Info) Description 08/25/2025 9:30 AM EST Office Visit Internal Medicine - [place] 175 [facility] [address] [place] [phone] Rakan Man MD 175 [facility] [address] [place] [address] 09/13/2025 4:30 PM EST Office Visit [facility] [place] 175 [facility] [address] [place] [phone] Mallorie Lancaster PA 175 [facility] [address] [place] [address] 09/27/2025 3:15 PM EST Office Visit Orthopedic Surgery - [place] 250 175 [facility] [address] [place] [phone] Jian Luevano, DPSeymour [address] [facility] [address] [place] [phone] documented as of this encounter Visit Diagnoses Diagnosis Dermatophytosis of nail- Primary Diabetic mononeuropathy simplex ([facility] V24, [facility] V28) Type II or unspecified type diabetes mellitus with neurological manifestations, not stated as uncontrolled Tinea pedis of both feet Ingrowing nail documented in this encounter Care Teams Beet End Supervisor Relationship Specialty Start Date End Date Rakan Man MD [address] [facility] [address] [facility] [address] [place] [address] PCP - General 01/15/23 documented as of this encounter
--- NOTE | 2025-06-29 09:53 | EMG_ITS ---
Chief complaint: Left hand numbness in the ulnar distribution Reason for referral:Evaluate lesion of ulnar nerve, left upper limb Referred by: Wisam Hoffman CNP Procedure done:Left upper extremity NCS/ EMG Left median and ulnar motor and sensory studies were performed left radial sensory, median lateral antecubital brachial sensory, and dorsal cutaneous ulnar sensory response was obtained. F responses were obtained an EMG needle examination was performed. Ulnar and median motor and mixed sensory studies did not reveal any significant abnormality. Ulnar dorsal sensory response amplitude was diminished with borderline conduction velocity. Needle examination revealed long duration polyphasic potential in left mid cervical and biceps. Impression: 1. Mild left ulnar dorsal sensory neuropathy. No evidence of ulnar neuropathy across elbow or a lower cervical radiculopathy 2. Chronic mild left mid cervical radiculopathy MTDD
--- OUTSIDE RECORDS SUMMARY | 2025-06-29 10:09 | XMS_ITS | Clinical Summary ---
Author Organization [facility] Address [address] [place] [address] Care Team Providers Care Jewelry Salesperson Name Role Phone Vinh Jordan PA-C Primary Care Provider [phone] Source Comments PLEASE NOTE, if this patient [...] hyperglycemia, without long-term current use of insulin ([facility]) Use to check fasting blood glucose levels daily (FREESTYLE LITE) 1 Each 1 Active cholecalciferol, vitamin D3, 25 mcg (1,000 unit) capsule Take 1 Capsule by mouth Take 1 capsule by mouth 1 (one) time each day [facility] 03/12/2021 Active blood sugar diagnostic stripsIndications :Type 2 diabetes mellitus with hyperglycemia, without long-term current use of insulin ([facility]) Use 1 (one) strip daily to check fasting blood glucose levels daily (FREESTYLE LITE) 100 Each 11 1 Active lancetsIndication s:Type 2 diabetes mellitus with hyperglycemia, without long-term current use of insulin ([facility]) Use 1 (one) strip daily to check [...] hyperglycemia, without long-term current use of insulin ([facility]) USE TO CLEAN FINGER PRIOR TO CHECKING FASTING BLOOD GLUCOSE LEVELS DAILY 1x/d DXE11.9 100 Each 11 [address] tabletIndications :Essential hypertension,Type 2 diabetes mellitus with hyperglycemia, without long-term current use of insulin ([facility]),Hypertri glyceridemia TAKE 1 TABLET BY MOUTH EVERY DAY 90 Tablet 1 3 Active topiramate (TOPAMAX) 15 mg capsuleIndication s:Intractable chronic cluster headache TAKE 1 CAPSULE BY MOUTH EVERYDAY AT BEDTIME 30 Capsule 2 4 Active metFORMIN (GLUCOPHAGE) 500 mg tabletIndications :Type 2 diabetes mellitus with hyperglycemia, without long-term current use of insulin ([facility]) TAKE 1 TABLET BY MOUTH EVERY DAY WITH BREAKFAST 90 Tablet 1 4 Active valsartan (DIOVAN) 160 mg tabletIndications :Essential hypertension TAKE 1 TABLET BY MOUTH EVERY DAY 90 Tablet 1 4 Active Active Problems Problem Noted Date Diagnosed Date Acute right-sided low back pain with right-sided sciatica 07/17/2022 Stage 3 chronic kidney disease ([facility]) 0 03/12/2021 Hypertensive renal disease 03/12/2021 Type 2 diabetes mellitus wit h hyperglycemia, without long-term current use of insulin ([facility]) 02/20/2021 COVID-19 09/18/2020 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 Overview [...] 04/25/2025 04/23/2024 Dental Perio Charting 04/25/2025 04/23/2024 [id number] ( season) 2025 022, 01/11/2021 Imm-Influenza (#1) [...] hyperglycemia, without long-term current use of insulin ([facility]) LIPID PANEL Routine 02/05/2023 11:33 AM EDT Type 2 diabetes mellitus with hyperglycemia, without long-term current use of insulin ([facility]) HEMOGLOBIN GLYCOSYLATED A1C Routine 02/05/2023 11:33 AM EDT Type 2 diabetes mellitus with hyperglycemia, without long-term current use of insulin ([facility]) MICROALBUMIN/CREATINI NE RATIO, URINE, RANDOM Routine 07/31/2021 3:46 PM EDT Type 2 diabetes mellitus with hyperglycemia, without long-term current use of insulin ([facility]) FECAL OCCULT BLOOD HEMOCCULT X3, LEOBARDO MELANIE (POCT) Routine 04/02/2019 9:56 AM EDT Colon cancer screening HEPATITIS A,B,C PANEL Routine 12/20/2016 10:20 AM EDT Exposure to viral hepatitis from Last 3 Months or Most Recently Relevant to Health Maintenance Results * HIV Screen (02/05/2023 11:33 AM EDT) [facility] HIV AG/AB, 4TH GEN NON-REAC TIVE NON-REAC TIVE [facility] Comment: HIV-1 antigen and HIV-1/HIV-2 antibodies [...] purpose. For additional information please refer to http://education.OneShift.beatlab/faq/HAL463 (This link is being provided for informational/ educational purposes only.) The performance of this assay has not been clinically validated in patients less than 2 years old. Blood Blood / Unknown 02/05/2023 1 1:33 AM EDT 02/05/2023 11:33 AM EDT Narrative [facility] - 02/07/2023 1:25 PM EDT FASTING:NO Vinh Jordan PA-C LAB - BLOOD DRAW Final Resul t Performing Organization Address [facility]/ZIP Co de Phone Number [facility] [address] [address], [employer] [address] [address] * RPR W/RFLX TITER+FTA+CONF (02/05/2023 11:33 AM EDT) RPR (DX) W/REFL TITER AND CONFIRMATORY TESTING NON-REACT WOOD NON-REACT WOOD [facility] Blood Blood / Unknown 02/05/2023 1 1:33 AM EDT 02/05/2023 11:33 AM EDT Narrative [facility] - 02/07/2023 1:25 PM EDT FASTING:NO us Vinh Jordan PA-C LAB - BLOOD DRAW Final Resul t Performing Organization Address [facility] Co de Phone Number [facility] [address] [address], [employer] [address] [address] * HbA1c (02/05/2023 11:33 AM EDT) HEMOGLOBIN A1C 5.3 <5.7 % of total Hgb [facility] Comment: For the purpose of screening for the presence of diabetes: <5.7% Consistent with the absence of diabetes 5.7-6.4% Consistent with increased risk for diabetes (prediabetes) > or =6.5% Consistent with diabetes This assay result is consistent with a decreased risk of diabetes. Currently, no consensus exists regarding use of hemoglobin A1c for diagnosis of diabetes in children. According to [place] Diabetes Association (ADA) guidelines, hemoglobin A1c <7.0% represents optimal control in non- diabetic patients. Different metrics may apply to specific patient populations. Standards of Medical Care in Diabetes(ADA). Blood Blood / Unknown 02/05/2023 1 1:33 AM EDT 02/05/2023 11:33 AM EDT Narrative [facility] - 02/07/2023 1:25 PM EDT FASTING:NO Vinh Jordan PA-C LAB - BLOOD DRAW Edited Resu lt - Final Performing Organization Address [facility]/ZIP Co de Phone Number [facility] [address] [address], [facility] [address] [address] * CREATININE, SERUM (02/05/2023 11:33 AM EDT) CREATININE (blood) 1.24 0.70 - 1.30 mg/dL [facility] EGFR 69 > OR = 60 mL/min/1.7 3m2 [facility] Comment: The eGFR is based on the CKD-EPI 2020 equation. To calculate the new eGFR from a previous Creatinine or Cystatin C result, go to https://www.kidney.org/professionals/ kdoqi/gfr%5Fcalculator Blood Blood / Unknown 02/05/2023 1 1:33 AM EDT 02/05/2023 11:33 AM EDT Narrative [facility] - 02/07/2023 1:25 PM EDT FASTING:NO Vinh Jordan PA-C LAB - BLOOD DRAW Edited [facility] - Final Performing Organization Address [facility] Co de Phone Number [facility] [address] [address], [facility] [address] [address] * (ABNORMAL) Lipid panel (02/05/2023 11:33 AM EDT) CHOLESTEROL, TOTAL 150 <200 mg/dL [facility] HDL CHOLESTEROL 45 > OR = 40 mg/dL [facility] TRIGLYCERIDES 241(H) <150 mg/dL [facility] Comment: If a non-fasting specimen was collected, consider repeat triglyceride testing on a fasting specimen if clinically indicated. Matt et al. J. of Clin. Lipidol. 2015;9:129-169. LDL-CHOLESTEROL 72 99 mg/dL (calc) [facility] Comment: Reference range: <100 Desirable range <100 mg/dL for primary prevention; <70 mg/dL for patients with CHD or diabetic patients with > or = 2 CHD risk factors. LDL-C is now calculated using the Octavia calculation, which is a validated novel method providing better accuracy than the Friedewald equation in the estimation of LDL-C. James AVENDANO et al. CHIKIS. 2013;310(19): 9065-3528 (http://education.SpringSource/faq/GNP923) CHOL/HDLC RATIO 3.3 <5.0 (calc) [facility] NON-HDL CHOLESTEROL 105 <130 mg/dL (calc) [facility] Comment: For patients with diabetes plus 1 major ASCVD risk factor, treating to a non-HDL-C goal of <100 mg/dL (LDL-C of <70 mg/dL) is considered a therapeutic option. Blood Blood / Unknown 02/05/2023 1 1:33 AM EDT 02/05/2023 11:33 AM EDT Narrative [facility] - 02/07/2023 1:25 PM EDT FASTING:NO Vinh Jordan PA-C LAB - BLOOD DRAW Final Resul t [facility] [address] [address], [facility] [facility] [address] [place] [phone] * MICROALBUMIN/CREATININE RATIO, URINE, RANDOM (07/31/2021 3:46 PM EDT) CREATININE, RANDOM URINE 190 20 - 320 mg/dL [facility] MICROALBUMIN 1.0 mg/dL [facility] Comment: Reference Range Not established MICROALBUMIN/CREA TININE RATIO, RANDOM URINE 5 <30 mcg/mg creat [facility] Comment: The ADA defines abnormalities in albumin [...] URINE AMBULATORY Final Resul t [facility] [address] [facility] [address] [place] [address], [place] [facility] [address] [facility] [address] [facility] [address] * STOOL OCCULT BLOOD (POCT) (04/02/2019 9:56 [...] AMBUL ATORY Final Result Performing Organization Address City/[facility]/ZIP Co de Phone Number [facility]- BACK OFFICE POCT * HEPATITIS A,B,C PANEL (12/20/2016 10:20 AM EDT) HEPATITIS B CORE ANTIBODY NEGATIVE NEGATIVE [facility] HEPATITIS A ANTIBODY TOTAL NEGATIVE NEGATIVE [facility] Blood specimen (specimen) Blood / Unknown 12/20/2016 10:20 AM EDT 12/20/2016 10:36 AM EDT Narrative [facility] - 12/20/2016 12:57 PM EDT [employer] [address] [place] [address] PT ID [id number] ORD# [id number] [place] [facility]ONEY LAB - BLOOD DRAW Final Result [facility] [address] [place] [address], from Last 3 Months or Most Recently Relevant to Health Maintenance Insurance [facility] Member Subscriber Plan / Payer (Ef fective 2023-Present) Name:Estevan Vera Relation to Subscriber:Self Name:Estevan Vera Payer ID:[id number] Group ID:[id number] Type:Medicaid Address: [facility] [address] [place] [address] [facility] Care Teams Jewelry Salesperson Relationship Specialty Start Date End Date Vinh Jordan PA-C [address] [place] [address] PCP - General 03/15/22
--- OUTSIDE RECORDS SUMMARY | 2025-06-29 10:10 | XMS_ITS | Clinical Summary ---
Author Organization [address] [facility] Address [address] [place] [address] Phone Care Team Providers Care Child And Youth Program Assistant Name Role Phone Rakan Man MD Primary Care Provider [phone] Allergies No known active allergies Medications aspirin [...] Date Uncontrolled diabetes mellit us with hyperglycemia ([facility] V24, [facility] V28) 12/07/2024 Encounters Date Type Department Care Team Description 06/28/2025 3:30 PM EDT Office Visit Orthopedic Surgery [facility] [address] [facility] [address] [place] [phone] Jian Luevano, DPM Dermatophytosis of nail (Primary Dx); Diabetic mononeuropathy simplex ([facility] V24, [facility] V28); Tinea pedis of both feet; Ingrowing nail 05/16/2025 Telephone Internal Medicine [facility] [address] [phone] Rakan Man MD 05/12/2025 [place] Internal Medicine [facility] [address] [phone] Rakan Man MD 05/03/2025 Telephone Internal Medicine [facility] [address] [phone] Rakan Man MD 05/02/2025 11:45 AM EDT Office Visit Internal Medicine [facility] [address] [phone] Rakan Man MD Tingling of left upper extremity (Primary Dx) 04/26/2025 Telephone Internal Medicine [facility] [address] [phone] Rakan Man MD from Last 3 Months Immunizations Name Administration Dates Next Due [email or web address] SARS-CoV-2 COVID -19, vector-nr, [id number], preservative free 01/11/2021 Surgical History Surgery Date Site/Laterality Comments COLONOSCOPY Medical History Medical History Date Comments Migraine DX:Migraine Diabetes mellitus ([facility] V24, [facility] V28) DX:Diabetes mellitus ([facility]) Hypertension DX:Hypertension Hypercholesteremia Social History [...] 9:30 AM EST Office Visit Internal Medicine [facility] 175 [facility] [address] [place] [address] Rakan Man MD 175 [facility] [address] [place] [address] 09/13/2025 4:30 PM EST Office Visit [facility] 175 [facility] [address] [place] [phone] Mallorie Lancaster PA 175 [facility] [address] [place] [address] 09/27/2025 3:15 PM EST Office Visit Orthopedic Surgery [facility] 250 [address] [facility] [address] [place] [phone] Jian Luevano DPM 175 [facility] [address] [place] [phone] Health Maintenance Due Date Last Done Comments [...] 02/08/2028 02/07/2023, 02/05/2023, 02/05/2023, Additional history exists RSV Immunization Adult Patients (1 - 1-dose 75+ series) 2042 Zoster Vaccines Completed 03/25/2018, 12/19/2017 Hepatitis B Vaccines Completed 04/03/2022, 12/28/19 HIV Screening Completed 02/07/2023 HIB Vaccines Aged [...] LAB CHEMISTRY METHOD 12/08/2024 11:01 AM EST [facility] Mean Bld Glu Estim. 214 mg/dL LAB CHEMISTRY METHOD 12/08/2024 11:01 AM EST [facility] Blood Venous blood specimen / Unknown Venipuncture / Unknown 12/08/2024 6:34 AM EST 12/08/2024 6:58 AM EST us Edith MOONEY LAB BLOOD ORDERABLES Final Resu lt [facility] [address] [place] [address], * (ABNORMAL) Comprehensive metabolic panel (12/07/2024 10:19 AM EST) Sodium 138 133 - 145 mmol/L LAB CHEMISTRY METHOD 12/07/2024 11:05 AM [facility] Potassium 4.1 3.5 - 5.5 mmol/L LAB CHEMISTRY METHOD 12/07/2024 11:05 AM [facility] Chloride 105 96 - 110 mmol/L LAB CHEMISTRY METHOD 12/07/2024 11:05 AM [facility] CO2 22 21 - 32 mmol/L LAB CHEMISTRY METHOD 12/07/2024 11:05 AM [facility] Anion Gap 11 3 - 11 LAB CHEMISTRY METHOD 12/07/2024 11:05 AM [facility] Glucose 398(H) 70 - 100 mg/dL LAB CHEMISTRY METHOD 12/07/2024 11:05 AM [facility] BUN 13 5 - 25 mg/dL LAB CHEMISTRY METHOD 12/07/2024 11:05 AM [facility] Creatinine 1.34(H) 0.70 - 1.30 mg/dL LAB CHEMISTRY METHOD 12/07/2024 11:05 AM [facility] eGFR 62 >=60 mL/min/1. 73m2 LAB CHEMISTRY METHOD 12/07/2024 11:05 AM [facility] Comment:Calculation based on the Chronic Kidney Disease Epidemiology Collaboration (CKD-EPI) equation refit without adjustment for race. BUN/Creatinine Ratio 9.7 LAB CHEMISTRY METHOD 12/07/2024 11:05 AM [facility] Calcium 9.7 8.5 - 10.5 mg/dL LAB CHEMISTRY METHOD 12/07/2024 11:05 AM [facility] AST (SGOT) 49(H) 10 - 42 unit/L LAB CHEMISTRY METHOD 12/07/2024 11:05 AM [facility] ALT (SGPT) 74(H) 10 - 60 unit/L LAB CHEMISTRY METHOD 12/07/2024 11:05 AM [facility] Alkaline Phosphatase 78 42 - 121 unit/L LAB CHEMISTRY METHOD 12/07/2024 11:05 AM [facility] Total Protein 8.0 6.0 - 8.0 g/dL LAB CHEMISTRY METHOD 12/07/2024 11:05 AM EST [facility] Albumin 4.3 3.2 - 5.0 g/dL LAB CHEMISTRY METHOD 12/07/2024 11:05 AM EST [facility] Total Bilirubin 1.2 0.0 - 1.4 mg/dL LAB CHEMISTRY METHOD 12/07/2024 11:05 AM EST [facility] Blood Venous blood specimen / Unknown Venipuncture / Unknown 12/07/2024 10:19 AM EST 12/07/2024 10:28 AM EST Result [facility] Catalino Velasco MD LAB BLOOD ORDERABLES Final Resu lt [facility] [address] [place] [address], [place] [phone] * External Diabetic Retina Eye Exam Report (08/30/2024) Anatomical Region Laterality Modality Ultrasound Result [facility] Provider Ja Onbase IM US PROCEDURES Final Result * Urine Albumin Creatinine Ratio (02/07/2023) Pathologist [facility] Urine Albumin Creatinine Ratio abstracted Result [facility] Historical Provider HEALTH MAINTENANCE Final Result * HIV Screening (02/07/2023) Pathologist [facility] HIV Screening abstracted Result [facility] Historical Provider HEALTH MAINTENANCE Final Result * Lipid panel (02/07/2023) Pathologist [facility] Triglycerides 0 mg/dL Comment:no interpretation, a bstracted Cholesterol 0 mg/dL Comment:no interpretation, a bstracted HDL 0 mg/dL Comment:no interpretation, a bstracted LDL Cholesterol 0 mg/dL Comment:no interpretation, a bstracted Blood Venous blood specimen / Unknown Result [facility] Historical Provider LAB BLOOD ORDERABLES Princess l Result from [...] currently active code status orders. Care Teams Child And Youth Program Assistant Relationship Specialty Start Date End Date Rakan Man MD [address] [place] [address] [address] [place] [address] PCP - General 01/15/23
--- OUTSIDE RECORDS SUMMARY | 2025-06-29 10:10 | XMS_ITS | Clinical Summary ---
Author Organization [facility] Address [address] [place] [address] Care Team Providers Care Truck Driver Salesperson Name Role Phone Unavailable Primary Care Provider [...]
== END 2025-06-29 08:51 | disposition home or self-care (01) ==
LOC: HO.NEURO 08:50
PROVIDERS: PCP Internal Medicine; Visit Provider Psychiatry & Neurology Neurology
DX: Z13.89 Encounter for screening for other disorder (principal)

== ENCOUNTER → 2025-06-29 09:53 | Outpatient (BNV) | payer OTHER, SELFPAY | PROVIDERS: PCP Internal Medicine; Visit Provider Psychiatry & Neurology Neurology | DX: G56.22 Lesion of ulnar nerve, left upper limb (principal) | CPT/HCPCS: 95886; 95910 ==

== ENCOUNTER 2025-07-06 10:46 | Outpatient (AMB) | payer OTHER, SELFPAY ==
--- NOTE | 2025-07-06 10:54 | A.OFFVIS_ITS ---
Intake Visit Reasons: RESULTS Allergies No Known Allergies Allergy (Verified 07/06/25 11:04) Medication List - Last Reconciled 07/06/25 by Jaye Hoffman CNP amitriptyline 50 mg PO BEDTIME amlodipine 5 mg PO DAILY aspirin 81 mg PO DAILY yfwriab-zympovttvgjts-ravnrdkj 250-250-65 mg (Excedrin Migraine) 1 tab PO Q4-6H PRN cholecalciferol (vitamin D3) (Vitamin D3) PO metformin ER 500 mg PO BID simvastatin 40 mg PO BEDTIME valsartan 160 mg PO DAILY HPI Comments Details: 60-year-old man with hyperlipidemia, hypertension, and diabetes who presented for evaluation of intermittent tingling and numbness to the left hand that started in 04/2025 with no precipitating event identified. The numbness mainly affects the last two fingers of the left hand. The tingling and numbness occurs throughout the day, lasting 10-15 minutes each time. 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 He avoid activities that require substantial use of the left hand, such as lifting patients, to prevent exacerbation. He was doing okay. No change in symptoms. No pain or weakness. He has some occasional neck stiffness. [facility] Medical History (Updated 07/06/25 @ 11:02 by Jaye Hoffman CNP) HLD (hyperlipidemia) Hypertension Uncontrolled diabetes mellitus with hyperglycemia Tingling of left upper extremity Social History (Updated 06/22/25 @ 10:56 by Jaye Hoffman CNP) Alcohol intake: never Patient Tobacco Use Status: Current everyday Tobacco user Substance Use Type: Marijuana Review of Systems Const Denies chills, Denies daytime sleepiness, Denies difficulty sleeping, Denies fatigue, Denies fever(s), Denies frequent falls, Denies headache(s), Denies increased appetite, Denies poor appetite, Denies snoring, Denies weakness, Denie s weight gain and Denies weight loss Eyes Denies loss of vision ENT Denies vertigo, Denies dizziness, Denies headache(s) and Denies neck pain Card Denies chest pain at rest, Denies chest pain with activity, Denies syncope, Denies leg edema, Denies palpitations, Denies dyspnea and Denies dyspnea on exertion Resp Denies cough, Denies dyspnea, Denies dyspnea on exertion and Denies snoring GI Denies abdominal pain, Denies constipation, Denies heartburn, Denies diarrhea and Denies nausea Denies urinary frequency, Denies urinary incontinence and Denies urinary urgency Musc Denies abnormal gait, Denies back pain, Denies myalgias, Denies arthralgias, Denies neck pain, Reports numbness and Reports tingling Neuro Denies abnormal gait, Denies vertigo, Denies dizziness, Denies syncope, Denies frequent falls, Denies headache(s), Denies lack of coordination, Denies loss of vision, Denies memory loss, Reports numbness, Denies Other visual disturbances, Denies restless legs, Denies seizure-like activity, Reports tingling, Denies paresthesias, Denies tremor(s) and Denies weakness Psych Denies anxiety, Denies depression, Denies auditory hallucinations, Denies memory loss and Denies visual hallucinations Endo Denies fatigue and Denies palpitations Physical Exam Const Other: General Appearance:? normal, in no acute distress. Heart:? S1, S2 normal, no murmurs. Lungs:? clear anteriorly and posteriorly. Musculoskeletal:? normal. Extremities:? no edema. Psych:? alert, oriented, cognitive function intact, cooperative with exam. Neuro Other: Abnormal Neurological Findings:?5-/5 L finger spread. Mental Status: alert and oriented X 3. Normal attention, orientation, memory, and affect. Cranial Nerves: Pupils are equal, round, and reactive to light. External ocular muscles are intact. Visual cloud are full, no ptosis. Face is symmetrical, no facial weakness or droop. Facial sensations are normal. Tongue protrudes in midline. Palate elevates symmetrically. Shoulder shrugging is normal Motor Examination: As above, otherwise normal muscle tone, bulk and strength. No atrophy or fasciculations. No drift of the extended upper extremities. DTR 2+. Plantars are flexor. Sensory Exam: Normal light touch, temperature, pinprick, vibration, and joint- position sensations. Rhomberg sign is absent. Coordination: No ataxia. No titubation. Gait Exam: Within normal limits. Cerebellar Signs: Yrmmsx-ui-sdmp is okay. Extrapyramidal System: No tremor, rigidity with normal facial expressions. No bradykinesia. No bradyphrenia. Normal arm swing and posture. No propulsion or retropulsion. Speech: Normal. Results Reviewed Results Reviewed: [place] [address] EMG / Nerve Conduction Report Signed Patient: Estevan Vera MR#: [id number] : 1965 Acct:[id number] Age/Sex: 60 / M ADM Date: 06/29/25 Loc: .NEURO Attending Dr: Daija Cabrera MD Ordering Physician: Jaye Hoffman CNP Date of Service: 06/29/25 Procedure(s): NE electromyogram (EMG); NE nerve conduction velocity Accession Number(s): [id number]; [id number] cc: Jaye Hoffman CNP~ Reason for Exam: G56.22 - Lesion of ulnar nerve, left upper limb Chief complaint: Left hand numbness in the ulnar distribution Reason for referral:Evaluate lesion of ulnar nerve, left upper limb Referred by: Wisam Hoffman CNP Procedure done:Left upper extremity NCS/ EMG Left median and ulnar motor and sensory studies were performed left radial sensory, median lateral antecubital brachial sensory, and dorsal cutaneous ulnar sensory response was obtained. F responses were obtained an EMG needle examination was performed. Ulnar and median motor and mixed sensory studies did not reveal any significant abnormality. Ulnar dorsal sensory response amplitude was diminished with borderline conduction velocity. Needle examination revealed long duration polyphasic potential in left mid cervical and biceps. Impression: 1. Mild left ulnar dorsal sensory neuropathy. No evidence of ulnar neuropathy across elbow or a lower cervical radiculopathy 2. Chronic mild left mid cervical radiculopathy Assessment & Plan Assessment & Plan (1) Ulnar neuropathy: Code(s): G56.20 - Lesion of ulnar nerve, unspecified upper limb Category: Medical Qualifiers: Laterality: left Qualified Code(s): G56.22 - Lesion of ulnar nerve, left upper limb Plan: NCV/EMG results reviewed - mild left ulnar dorsal sensory neuropathy Conservative management reviewed No significant pain and medication was not needed at this time. (2) Cervical radiculopathy: Code(s): M54.12 - Radiculopathy, cervical region Category: Medical Plan: MRI C-spine ordered. Orders: Orders MR cervical spine wo con Today M54.12 - Radiculopathy, cervical region Coding Level of Care Code Est Pt Level 4 (02089) Diagnoses Ulnar neuropathy of left upper extremity G56.22 Laterality: left Cervical radiculopathy M54.12
--- OUTSIDE RECORDS SUMMARY | 2025-07-06 12:21 | XMS_ITS | Clinical Summary ---
Author Organization 175 [facility] Address [address] [place] [address] Phone Care Team Providers Care It Lead Name Role Phone Rakan Man MD Primary Care Provider Allergies No known active allergies Medications aspirin [...] Date Uncontrolled diabetes mellit us with hyperglycemia ([facility] V24, [facility] V28[place] 12/07/2024 Encounters Date Type Department Care Team Description 06/28/2025 3:30 PM EDT Office Visit Orthopedic Surgery [facility] [address] [facility] [address] [place] [phone] Jian Luevano, DPM Dermatophytosis of nail (Primary Dx); Diabetic mononeuropathy simplex ([facility] V24, [facility] V28); Tinea pedis of both feet; Ingrowing nail 05/16/2025 Telephone Internal Medicine [facility] [address] [phone] Rakan Man MD 05/12/2025 Telephone Internal Medicine [facility] [address] [phone] Rakan Man MD 05/03/2025 Telephone Internal Medicine [facility] [address] [phone] Rakan Man MD 05/02/2025 11:45 AM EDT Office Visit Internal Medicine [facility] [address] [phone] Rakan Man MD Tingling of left upper extremity (Primary Dx) 04/26/2025 Telephone Internal Medicine [facility] [address] [phone] Rakan Man MD from Last 3 Months Immunizations Immunization Administration Dates Next Due [employer] SARS-CoV-2 COVID -19, vector-nr, [id number], preservative free 01/11/2021 Surgical History Surgery Date Site/Laterality Comments COLONOSCOPY Medical History Medical History Date Comments Migraine DX:Migraine Diabetes mellitus ([facility] V24, [facility] V28) DX:Diabetes mellitus ([facility]) Hypertension DX:Hypertension Hypercholesteremia Social History Tobacco Use Types Packs/Day Years Used Date Smoking Tobacco: Never Smokeless Tobacco: Never Tobacco Cessation:Counseling Given: Not Answered Alcohol Use Standard Drinks/Week Comments Yes 0 (1 standard drink = 0.6 oz pur e alcohol) Social Interpersonal Safety Answer Date Record ed Physical Abuse Unrecognized value 12/07/2024 Verbal Abuse Unrecognized value 12/07/2024 Sex and Gender Information Value Date [...] 9:30 AM EST Office Visit Internal Medicine [facility] 175 [facility] [address] [place] [phone] Rakan Man MD 175 [facility] [address] [place] [address] 09/13/2025 4:30 PM EST Office Visit [facility] 175 [facility] [address] [place] [phone] Mallorie Lancaster PA 175 [facility] [address] [place] [address] 09/27/2025 3:15 PM EST Office Visit Orthopedic Surgery [facility] 250 [address] [facility] [address] [place] [phone] Jian Luevano DPM [address] [phone] Health Maintenance Due Date Last Done Comments Colorectal Cancer Screening: Colonoscopy 1965 Diabetes: Annual Foot Exam 1977 Pneumococcal Vaccine: 50+ Years (1 of 2 - PCV) 1986 Hepatitis C Screening 09/14/2022 Social Influencers of [...] LAB CHEMISTRY METHOD 12/08/2024 11:01 AM EST [facility] Mean Bld Glu Estim. 214 mg/dL LAB CHEMISTRY METHOD 12/08/2024 11:01 AM EST [facility] Blood Venous blood specimen / Unknown Venipuncture / Unknown 12/08/2024 6:34 AM EST 12/08/2024 6:58 AM EST us Edith MOONEY LAB BLOOD ORDERABLES Final Resu lt [facility] [address] [place] [address], * (ABNORMAL) Comprehensive metabolic panel (12/07/2024 10:19 AM EST) Sodium 138 133 - 145 mmol/L LAB CHEMISTRY METHOD 12/07/2024 11:[address] [facility] Potassium 4.1 3.5 - 5.5 mmol/L LAB CHEMISTRY METHOD 12/07/2024 11:[address] [facility] Chloride 105 96 - 110 mmol/L LAB CHEMISTRY METHOD 12/07/2024 11:[address] [facility] CO2 22 21 - 32 mmol/L LAB CHEMISTRY METHOD 12/07/2024 11:[address] [facility] Anion Gap 11 3 - 11 LAB CHEMISTRY METHOD 12/07/2024 11:[address] [facility] Glucose 398(H) 70 - 100 mg/dL LAB CHEMISTRY METHOD 12/07/2024 11:[address] [facility] BUN 13 5 - 25 mg/dL LAB CHEMISTRY METHOD 12/07/2024 11:[address] [facility] Creatinine 1.34(H) 0.70 - 1.30 mg/dL LAB CHEMISTRY METHOD 12/07/2024 11:[address] [facility] eGFR 62 >=60 mL/min/1. 73m2 LAB CHEMISTRY METHOD 12/07/2024 11:[address] [facility] Comment:Calculation based on the Chronic Kidney Disease Epidemiology Collaboration (CKD-EPI) equation refit without adjustment for race. BUN/Creatinine Ratio 9.7 LAB CHEMISTRY METHOD 12/07/2024 11:[address] [facility] Calcium 9.7 8.5 - 10.5 mg/dL LAB CHEMISTRY METHOD 12/07/2024 11:[address] [facility] AST (SGOT) 49(H) 10 - 42 unit/L LAB CHEMISTRY METHOD 12/07/2024 11:[address] [facility] ALT (SGPT) 74(H) 10 - 60 unit/L LAB CHEMISTRY METHOD 12/07/2024 11:[address] [facility] Alkaline Phosphatase 78 42 - 121 unit/L LAB CHEMISTRY METHOD 12/07/2024 11:05 AM EST [facility] Total Protein 8.0 6.0 - 8.0 g/dL LAB CHEMISTRY METHOD 12/07/2024 11:05 AM EST [facility] Albumin 4.3 3.2 - 5.0 g/dL LAB CHEMISTRY METHOD 12/07/2024 11:[address] [facility] Total Bilirubin 1.2 0.0 - 1.4 mg/dL LAB CHEMISTRY METHOD 12/07/2024 11:05 AM EST [facility] Blood Venous blood specimen / Unknown Venipuncture / Unknown 12/07/2024 10:19 AM EST 12/07/2024 10:28 AM EST Result [facility] Catalino Velasco MD LAB BLOOD ORDERABLES Final Resu lt [facility] [address] [place] [address], * External Diabetic Retina Eye Exam Report (08/30/2024) Anatomical Region Laterality Modality Ultrasound Result [facility] Provider Ja Onbase IMG US PROCEDURES Final Result * Urine Albumin Creatinine Ratio (02/07/2023) Pathologist [facility] Urine Albumin Creatinine Ratio abstracted Result [facility] Historical Luis [facility] [employer]CE Final Result * HIV Screening (02/07/2023) Pathologist [facility] HIV Screening abstracted Result [facility] Historical Provider HEALTH MAINTENANCE Final Result * Lipid panel (02/07/2023) Pathologist [facility] Triglycerides 0 mg/dL Comment:no interpretation, a bstracted Cholesterol 0 mg/dL Comment:no interpretation, a bstracted HDL 0 mg/dL Comment:no interpretation, a bstracted LDL Cholesterol 0 mg/dL Comment:no interpretation, a bstracted Blood Venous blood specimen / Unknown Result [facility] Historical Provider LAB BLOOD ORDERABLES Princess l [...] currently active code status orders. Care Teams It Lead Relationship Specialty Start Date End Date Rakan Man MD 175 [facility] [address] [place] [address] PCP - General 01/15/23
--- OUTSIDE RECORDS SUMMARY | 2025-07-06 12:21 | XMS_ITS | Clinical Summary ---
Author Organization [facility] Address [address] [place] [address] Care Team Providers Care [employer] Name Role Phone Unavailable Primary Care Provider [...]
--- OUTSIDE RECORDS SUMMARY | 2025-07-06 12:21 | XMS_ITS | Clinical Summary ---
Author Organization [facility] Address [address] [place] [address] Care Team Providers Care Wrapping Clerk Name Role Phone Vinh Jordan PA-C Primary Care Provider [phone] Source Comments PLEASE NOTE, if this patient [...] hyperglycemia, without long-term current use of insulin Use to check fasting blood glucose levels daily (FREESTYLE LITE) 1 Each 1 Active cholecalciferol, vitamin D3, 25 mcg (1,000 unit) capsule Take 1 Capsule by mouth Take 1 capsule by mouth 1 (one) time each day [facility] 03/12/2021 Active blood sugar diagnostic stripsIndications :Type 2 diabetes mellitus with hyperglycemia, without long-term current use of insulin Use 1 (one) strip daily to check fasting blood glucose levels daily (FREESTYLE LITE) 100 Each 11 1 Active lancetsIndication s:Type 2 diabetes mellitus with hyperglycemia, without long-term current use of insulin Use 1 (one) strip daily to check [...] hyperglycemia, without long-term current use of insulin USE TO CLEAN FINGER PRIOR TO CHECKING FASTING BLOOD GLUCOSE LEVELS DAILY 1x/d DXE11.9 100 Each 11 [address] tabletIndications :Essential hypertension,Type 2 diabetes mellitus with hyperglycemia, without long-term current use of insulin,Hypertrig lyceridemia TAKE 1 TABLET BY MOUTH EVERY DAY 90 Tablet 1 3 Active topiramate (TOPAMAX) 15 mg capsuleIndication s:Intractable chronic cluster headache TAKE 1 CAPSULE BY MOUTH EVERYDAY AT BEDTIME 30 Capsule 2 4 Active metFORMIN (GLUCOPHAGE) 500 mg tabletIndications :Type 2 diabetes mellitus with hyperglycemia, without long-term current use of insulin TAKE 1 TABLET BY MOUTH EVERY DAY WITH BREAKFAST 90 Tablet 1 4 Active valsartan (DIOVAN) 160 mg tabletIndications :Essential hypertension TAKE 1 TABLET BY MOUTH EVERY DAY 90 Tablet 1 4 Active Active Problems Problem Noted Date Diagnosed Date Acute right-sided low back pain with right-sided sciatica 07/17/2022 Stage 3 chronic kidney disease 03/12/2021 Hypertensive renal disease 03/12/2021 Type 2 diabetes mellitus wit h hyperglycemia, without long-term current use of insulin 02/20/2021 COVID-19 09/18/2020 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 Overview [...] Industry Job Start Date Job End Date [employer] [facility] Not on file Not on file [...] Screening 03/03/2023 03/03/2022 Hemoglobin A1c 08/08/2023 02/05/2023, 12/04, 07/31/2021, Additional history exists Diabetes Foot Exam 02/06/2024 02/05/2023, 0 02/05/2023, 07/31/2021, Additional history exists HIV Screening 02/06/2024 02/05/2023, 06/08, 12/22/2018, Additional history exists Lipid Screening 02/06/2024 02/05/2023, 06/0 12/2020, 12/22/2018, Additional history exists Serum Creatinine 02/06/2024 02/05/2023, , 07/31/2021, Additional history exists Syphilis Screening 02/06/2024 02/05/2023 Alcohol and Drug Screen 10/06/2024 02/06/20 23, 12/18/2021, 03/02/2021, Additional history exists Depression Annual Screen 10/06/2024 02/05/2023, 12/04 Dental Prophy 10/26/2024 04/23/2024 Dental BW 04/25/2025 04/23/2024 Dental Examination 04/25/2025 04/23/2024 Dental Perio Charting 04/25/2025 04/23/2024 [id number]-30 ( season) 2025 022, 01/11/2021 Imm-Influenza (#1) [...] hyperglycemia, without long-term current use of insulin ([facility]) LIPID PANEL Routine 02/05/2023 11:33 AM EDT Type 2 diabetes mellitus with hyperglycemia, without long-term current use of insulin ([facility]) HEMOGLOBIN GLYCOSYLATED A1C Routine 02/05/2023 11:33 AM EDT Type 2 diabetes mellitus with hyperglycemia, without long-term current use of insulin ([facility]) MICROALBUMIN/CREATINI NE RATIO, URINE, RANDOM Routine 07/31/2021 3:46 PM EDT Type 2 diabetes mellitus with hyperglycemia, without long-term current use of insulin ([facility]) FECAL OCCULT BLOOD HEMOCCULT X3, LEOBARDO MELANIE (POCT) Routine 04/02/2019 9:56 AM EDT Colon cancer screening HEPATITIS A,B,C PANEL Routine 12/20/2016 10:20 AM EDT Exposure to viral hepatitis from Last 3 Months or Most Recently Relevant to Health Maintenance Results * HIV Screen (02/05/2023 11:33 AM EDT) Pathologist [facility] HIV AG/AB, 4TH GEN NON-REAC TIVE NON-REAC TIVE [employer] Comment: HIV-1 antigen and HIV-1/HIV-2 antibodies were [...] purpose. For additional information please refer to http://education.EidoSearch.ViperMed/faq/WXO417 (This link is being provided for informational/ educational purposes only.) The performance of this assay has not been clinically validated in patients less than 2 years old. Blood Blood / Unknown 02/05/2023 1 1:33 AM EDT 02/05/2023 11:33 AM EDT Narrative [employer] - 02/07/2023 1:25 PM EDT FASTING:NO us Vinh Jordan PA-C LAB - BLOOD DRAW Final Resul t [employer] [address] [place] [id number], [employer] [address] [address] * RPR W/RFLX TITER+FTA+CONF (02/05/2023 11:33 AM EDT) Pathologist [facility] RPR (DX) W/REFL TITER AND CONFIRMATORY TESTING NON-REACT WOOD NON-REACT WOOD [employer] Blood Blood / Unknown 02/05/2023 1 1:33 AM EDT 02/05/2023 11:33 AM EDT Narrative [employer] - 02/07/2023 1:25 PM EDT FASTING:NO us Vinh Jordan PA-C LAB - BLOOD DRAW Final Resul t Performing Organization Address [facility] de Phone Number [employer] [address] [place] [id number], [email or web address] [address] [address] * HbA1c (02/05/2023 11:33 AM EDT) Pathologist [facility] HEMOGLOBIN A1C 5.3 <5.7 % of total Hgb [employer] [facility] Comment: For the purpose of screening for the presence of diabetes: <5.7% Consistent with the absence of diabetes 5.7-6.4% Consistent with increased risk for diabetes (prediabetes) > or =6.5% Consistent with diabetes This assay result is consistent with a decreased risk of diabetes. Currently, no consensus exists regarding use of hemoglobin A1c for diagnosis of diabetes in children. According to [place] Diabetes Association (ADA) guidelines, hemoglobin A1c <7.0% represents optimal control in non- diabetic patients. Different metrics may apply to specific patient populations. Standards of Medical Care in Diabetes(ADA). Blood Blood / Unknown 02/05/2023 1 1:33 AM EDT 02/05/2023 11:33 AM EDT Narrative [employer] - 02/07/2023 1:25 PM EDT FASTING:NO us Vinh Jordan PA-C LAB - BLOOD DRAW Edited Resu lt - Final Performing Organization Address City/[facility]/ZIP Co de Phone Number [employer] [address] [address], [email or web address] [facility] [address] [place] [address] * CREATININE, SERUM (02/05/2023 11:33 AM EDT) Pathologist [facility] CREATININE (blood) 1.24 0.70 - 1.30 mg/dL [employer] [facility] EGFR 69 > OR = 60 mL/min/1.7 3m2 [employer] Comment: The eGFR is based on the CKD-EPI 2020 equation. To calculate the new eGFR from a previous Creatinine or Cystatin C result, go to https://www.kidney.org/professionals/ kdoqi/gfr%5Fcalculator Blood Blood / Unknown 02/05/2023 1 1:33 AM EDT 02/05/2023 11:33 AM EDT Narrative [employer] - 02/07/2023 1:25 PM EDT FASTING:NO us Vinh Jordan PA-C LAB - BLOOD DRAW Edited Resu lt - Final [employer] [facility] [address] [address], [employer] [facility] [address] [place] [address] * (ABNORMAL) Lipid panel (02/05/2023 11:33 AM EDT) Pathologist [facility] CHOLESTEROL, TOTAL 150 <200 mg/dL [employer] HDL CHOLESTEROL 45 > OR = 40 mg/dL [employer] [facility] TRIGLYCERIDES 241(H) <150 mg/dL [employer] [facility] Comment: If a non-fasting specimen was collected, consider repeat triglyceride testing on a fasting specimen if clinically indicated. Matt et al. J. of Clin. Lipidol. 2015;9:129-169. LDL-CHOLESTEROL 72 99 mg/dL (calc) [employer] [facility] Comment: Reference range: <100 Desirable range <100 mg/dL for primary prevention; <70 mg/dL for patients with CHD or diabetic patients with > or = 2 CHD risk factors. LDL-C is now calculated using the Octavia calculation, which is a validated novel method providing better accuracy than the Friedewald equation in the estimation of LDL-C. James AVENDANO et al. CHIKIS. 2013;310(19): 5579-9145 (http://education.[employer] (LGTmedical)/faq/PHA159) CHOL/HDLC RATIO 3.3 <5.0 (calc) [facility] NON-HDL CHOLESTEROL 105 <130 mg/dL (calc) [employer] Comment: For patients with diabetes plus 1 major ASCVD risk factor, treating to a non-HDL-C goal of <100 mg/dL (LDL-C of <70 mg/dL) is considered a therapeutic option. Blood Blood / Unknown 02/05/2023 1 1:33 AM EDT 02/05/2023 11:33 AM EDT Narrative [employer] - 02/07/2023 1:25 PM EDT FASTING:NO Vinh Jordan PA-C LAB - BLOOD DRAW Final Resul t Performing Organization Address [facility] de Phone Number [employer] [address] [address], [employer] [address] [address] * MICROALBUMIN/CREATININE RATIO, URINE, RANDOM (07/31/2021 3:46 PM EDT) CREATININE, RANDOM URINE 190 20 - 320 mg/dL [employer] MICROALBUMIN 1.0 mg/dL [employer] [facility] Comment: Reference Range Not established MICROALBUMIN/CREA TININE RATIO, RANDOM URINE 5 <30 mcg/mg creat [employer] [facility] Comment: The ADA defines abnormalities in albumin [...] 3:46 PM EDT 07/31/2021 3:47 PM EDT us Dedra COTTON[facility] LAB URINE AMBULATORY Final Resul t Performing Organization Address [facility] de Phone Number [employer] [address] [address], [employer] [facility] [address] [address] * STOOL OCCULT BLOOD (POCT) (04/02/2019 9:56 AM EDT) FECAL OCCULT BLOOD NEGATIVE NEGATIVE [facility]- BACK OFFICE POCT FECAL OCCULT BLOOD #2 NEGATIVE NEGATIVE [facility] BACK OFFICE POCT FECAL OCCULT BLOOD #3 NEGATIVE NEGATIVE [facility]- BACK OFFICE POCT Stool specimen (specimen) Stool specimen / Unknown 04/02/2019 9:56 AM EDT Dedra Dugan [employer] [facility] BODY FLUIDS AND STOOLS AMBUL ATORY Final Result [facility]- BACK OFFICE POCT * HEPATITIS A,B,C PANEL (12/20/2016 10:20 AM EDT) HEPATITIS B CORE ANTIBODY NEGATIVE NEGATIVE [facility] HEPATITIS A ANTIBODY TOTAL NEGATIVE NEGATIVE [facility] Blood specimen (specimen) Blood / Unknown 12/20/2016 10:20 AM EDT 12/20/2016 10:36 AM EDT Narrative [facility] - 12/20/2016 12:57 PM EDT [facility] [address] [place] [address] PT ID [id number] ORD# [id number] [place] [facility] LAB - BLOOD DRAW Final Result [facility] [address] [place] [address], from Last 3 Months or Most Recently Relevant to Health Maintenance Insurance [facility] Member Subscriber Plan / Payer (Ef fective 2023-Present) Name:Estevan Vera Relation to Subscriber:Self Name:Estevan Vera Payer ID:[id number] Group ID:[id number] Type:Medicaid Address: [facility] [address] [place] [address] [facility] Care Teams Wrapping Clerk Relationship Specialty Start Date End Date Vinh Jordan PA-C [address] [place] [address] PCP - General 03/15/22
== END 2025-07-06 11:12 | disposition home or self-care (01) ==
LOC: HO.HSM 10:47
PROVIDERS: PCP Internal Medicine; Visit Provider Registered Nurse
DX: G56.22 Lesion of ulnar nerve, left upper limb (principal); M54.12 Radiculopathy, cervical region
CPT/HCPCS: 99214